=== PATIENT | male | born 1955 | race Caucasian/White ===

== ENCOUNTER → 2018-12-19 | Outpatient (CLI) | payer OTHER ==
[~2018-12-19] MED LIST: GASTROGRAFIN SOLUTION 30ML (Q9963) As Ordered ONE; ISOVUE-370 76% 100ML VIAL (Q9967) As Ordered ONE
--- NOTE | 2018-12-19 09:54 | REP ---
Two-view chest: New 12/19/2018. New indication: Chest pain. Comparison: None. Findings: There are somewhat ill-defined areas of increased opacity within the left upper lobe as well as in the lower lobes. Chronic-appearing left rib deformities are present. There is no pleural effusion or pneumothorax. The cardiomediastinal silhouette is unremarkable save for atherosclerotic disease of the aorta. Minimal dextroscoliosis is present with the convexity centered at T11. Multilevel degenerative sequelae of the lumbar spine are present. Impression: Patchy areas of increased opacity within predominantly the left upper lobe which is nonspecific and may represent pneumonitis, however, neoplastic process is not excluded. Electronically Signed by Jf Dubon DO 12/19/2018 09:46 A
--- NOTE | 2018-12-19 13:37 | REP ---
CT of the abdomen and pelvis with IV and oral contrast for inguinal hernia: There are no comparisons. There is a large right inguinal hernia containing a large loop of colon and a loop of small bowel extending into the scrotum. There is no evidence of bowel strangulation. There is no evidence of bowel obstruction. There is no inguinal hernia on the left. There is a mass in the right renal pelvis extending anterolaterally resulting in attenuation of the right renal arteries. The right renal cortex enhances to a lesser degree than the left renal cortex. I suspect a portion of this mass extends into the adjacent hepatic capsule and parenchyma. There is a 7 cm left suprarenal mass. The right adrenal is not identified with certainty. In the visualized lower lung camacho, there is a left lower lobe pleural-based mass eroding into the adjacent ribs, measuring 7.5 cm along its base. There is a left hilar mass measuring 3.3 cm. There is a 3.6 cm mass, subcapsular, anteriorly in the left lobe of the liver. Just lateral to this there is a mesenteric mass along the serosal surface of the hepatic left lobe measuring 3.0 cm. There is a 2.8 cm mass posteriorly in the left lobe of the liver. The gallbladder is unremarkable. Pancreas and spleen are unremarkable. The abdominal aorta is unremarkable except for calcified atheroma. No definite periaortic adenopathy or mass are identified. There is artifact from the vena cava. There is minimal subcutaneous and intraperitoneal body fat. Pelvis: No ascites. Large right inguinal hernia extending into the scrotum, as described. No adenopathy or mass. There are no lytic, blastic or destructive skeletal changes. There is degenerative disc disease and facet osteoarthritis in the lumbar spine. Impression: Large right inguinal hernia extending into the scrotum containing large and small bowel loops. No evidence of bowel obstruction or strangulation. Multiple masses in the visualized left hemithorax, liver, left adrenal and right kidney. Mesenteric mass adjacent to the hepatic left lobe. Minimal body fat. Electronically Signed by Marino Agustin MD 12/19/2018 01:28 P
== END ==
LOC: M RAD 08:21
PROVIDERS: ATTEND Surgery
DX: K40.90 Unilateral inguinal hernia, without obstruction or gangrene, not specified as recurrent (principal)
CPT/HCPCS: 71046; 74177; Q9963; Q9967

== ENCOUNTER → 2018-12-30 | Outpatient (CLI) | payer OTHER ==
[~2018-12-30] MED LIST changes: +ACET-683 PO; -GASTROGRAFIN SOLUTION 30ML (Q9963) As Ordered ONE; -ISOVUE-370 76% 100ML VIAL (Q9967) As Ordered ONE; +OXYC1TAB23 PO
[2018-12-30 13:51] LABS: INR 1.27; PROTHROMBIN TIME 15.6 SECONDS (11.8-14.0)
[2018-12-30 13:52] LABS: PARTIAL THROMBOPLASTIN TIME 38.3 SECONDS (25.0-38.4)
== END ==
LOC: M LAB 12:49
PROVIDERS: ATTEND Surgery
DX: Z01.818 Encounter for other preprocedural examination (principal)

== ENCOUNTER 2018-12-31 07:05 | Emergency (ER) | payer OTHER ==
[~2018-12-31] VITALS: Ht 167.6 cm; Wt 64.1 kg
[2018-12-31] MEDS: NITROGLYCERIN 0.4 MG SUBL TABLET SL PRN ×3 (07:26→07:36)
[2018-12-31] MEDS ORDERED: cefTRIAXone SOD 2 GM in D5W MINI-BAG PLUS 50 ML IV ONE (07:45)
[2018-12-31] MEDS: IPRATROPIUM 0.5MG/ALBUTEROL 2.5MG INH SOL UD 3ML (DUONEB)(J7620) NEB SCH ×3 (07:45→08:25)
[2018-12-31] MEDS ORDERED: NITROGLYCERIN 2% OINT 1 GM *U/D* PKT TOP ONE (07:45)
[2018-12-31 07:46] LABS: VENOUS BASE EXCESS 1.4 (-2.0-2.0); VENOUS HCO3 26.9 MEQ/L (23.0-27.0); VENOUS O2 SATURATION 77.7 % (60.0-80.0); VENOUS PARTIAL PRESSURE CO2 46.6 mmHg (38.0-50.0); VENOUS PARTIAL PRESSURE O2 46.1 mmHg (30.0-50.0); VENOUS STANDARD HCO3 25.3 MEQ/L; VENOUS TOTAL CO2 28.4 MEQ/L (24.0-28.0)
--- NOTE | 2018-12-31 07:53 | ECGEPIP ---
[facility] - ED Test Date: 2018-12-31 Pat Name: LULA LILLY Department: Room: - Gender: Male [employer]: TC : 1955 Requested By: Lacey Leblanc Order Number: [id number] Reading MD: Ernie Carroll Measurements Intervals [place] Rate: 98 P: 72 IN: 133 QRS: 87 QRSD: 103 T: 85 QT: 359 QTc: 460 Interpretive Statements SINUS RHYTHM POOR R WAVE PROGRESSION BASELINE ARTIFACT AFFECTS INTERPRETATION NO PRIORS FOR COMPARISON Electronically Signed on 12-31-2018 7:53:42 EST by Ernie Carroll
[2018-12-31 07:58] LABS: BASO # 0.1 10^3/uL (0.0-0.2); BASO % 0.5 % (0.0-1.0); EOS # 0.9 10^3/uL (0.0-0.5); EOS % 4.4 % (0.0-3.0); HEMATOCRIT 33.4 % (42.0-52.0); LYMPH # 1.5 10^3/uL (1.5-5.0); LYMPH % 7.1 % (24.0-44.0); MEAN CORPUSCULAR HEMOGLOBIN 31.2 pg (27.0-33.0); MEAN CORPUSCULAR HGB CONC 32.9 g/dl (32.0-36.5); MEAN CORPUSCULAR VOLUME 94.6 fl (80.0-96.0); MONO % 10.3 % (0.0-5.0); NEUTROPHILS # 15.6 10^3/uL (1.5-8.5); NEUTROPHILS % 76.9 % (36.0-66.0); PLATELET COUNT, AUTOMATED 247 10^3/uL (150-450); RED BLOOD COUNT 3.53 10^6/uL (4.30-6.10); WHITE BLOOD COUNT 20.3 10^3/uL (4.0-10.0)
--- NOTE | 2018-12-31 08:05 | REP ---
Portable chest x-ray: Single view. History: Dyspnea and cough. Comparison chest x-ray: December 19, 2018. Findings: Heart is not enlarged. There is a diffuse interstitial pulmonary edema pattern which is a new finding. There is a large opacity in the left perihilar region which may be pleural based mass versus infiltrate. There is a smaller pleural-based mass associated with a rib fracture along the left upper lateral chest wall. A portion of this rib is ill-defined question neoplastic involvement. There is another rib fracture more inferiorly. These ribs are rib numbers five and seven. Pleural angles are sharp. The aorta somewhat tortuous. No pleural effusion. Impression: New diffuse interstitial pulmonary edema pattern. There are two pleural opacities in the left chest, one of which is large. These opacities in the left chest are visualized at the top of the field of view on the CT study of the abdomen taken 08/31/2018 and indeed relate to neoplastic destructive rib lesions with chest wall involvement. Electronically Signed by Rey Alba MD 12/31/2018 08:23 A
[2018-12-31] MEDS ORDERED: OXYC1TAB23 PO (08:07)
[2018-12-31] MEDS ORDERED: ACET-683 PO (08:07)
[2018-12-31 08:11] LABS: INR 1.28; PROTHROMBIN TIME 15.7 SECONDS (11.8-14.0)
[2018-12-31 08:18] VITALS: BP 178/110
[2018-12-31 08:24] LABS: ALBUMIN 2.8 GM/DL (3.2-5.2); ALT/SGPT 15 U/L (12-78); BILIRUBIN,DIRECT 0.3 MG/DL (0.0-0.2); BILIRUBIN,TOTAL 0.7 MG/DL (0.2-1.0); BLOOD UREA NITROGEN 25 MG/DL (7-18); CALCIUM LEVEL 9.7 MG/DL (8.8-10.2); CARBON DIOXIDE LEVEL 27 MEQ/L (21-32); CHLORIDE LEVEL 100 MEQ/L (98-107); CK-MB VALUE MASS 24.7 NG/ML (<3.6); CPK CREATINE PHOSPHOKINASE 214 U/L (39-308); CREATININE FOR GFR 1.18 MG/DL (0.70-1.30); GLOMERULAR FILTRATION RATE > 60.0 (>49); GLUCOSE, FASTING 96 MG/DL (70-100); MB/CK RELATIVE INDEX 11.54 (< OR =4); NT-PRO BNP 18738 PG/ML (<125); POTASSIUM SERUM 3.8 MEQ/L (3.5-5.1); SODIUM LEVEL 137 MEQ/L (136-145); TOTAL PROTEIN 7.5 GM/DL (6.4-8.2); TROPONIN I 7.98 NG/ML (< 0.10)
[2018-12-31 08:29] LABS: MONO # 2.1 10^3/uL (0.0-0.8)
--- NOTE | 2018-12-31 10:07 | REP ---
CT brain: 12/31/2018. Indication: Multiple thoracic and abdominal masses. Metastatic workup. Comparison: None. Technique: Unenhanced axial CT images of the brain were obtained from skull base to vertex. Findings: There are is no lytic lesion of the vertex which is incompletely evaluated. There is no acute intracranial hemorrhage, acute cortical infarction, mass effect or hydrocephalous. Intracranial atherosclerotic disease is present, particularly involving the cavernous ICAs and left V4 segment. Impression: There is no acute intracranial process. Vertex lytic calvarial lesion. Likely metastatic disease considering findings elsewhere of the body. Electronically Signed by Jf Dubon DO 12/31/2018 09:58 A
[2018-12-31] MEDS ORDERED: ASPIRIN 81 MG CHEW TABLET PO ONE (11:30)
--- NOTE | 2018-12-31 12:49 | REP ---
CT CHEST WITHOUT CONTRAST: HISTORY: Dyspnea and cough. Comparison images are from December 19, 2018 study of the abdomen. Comparison is made with today's chest x-ray. CT FINDINGS: There is a paucity of subcutaneous and mediastinal fat consistent with cachexia. There is a skeletal metastatic disease pattern with multiple destructive rib lesions and three areas of associated pleural-based mass effect. The largest of these is in the left posterior rib cage involving rib numbers 8 and 9. There is a fracture of the posterolateral 7th rib on the left. There is a pathologic fracture of the posterolateral right 7th rib. There are radiolucent lesions in the thoracic spine vertebral body at the T5 vertebral body level. This extends into the left pedicle somewhat. There is a smaller lytic lesion in the posterior superior T9 level. There is a metastatic lesion involving the right transverse process at T5 as well. There is a pulmonary parenchymal spiculated nodule in the left upper lobe perihilar region which measures 3.0 cm in greatest diameter. There is some left hilar fullness. No definite mediastinal adenopathy is seen. There is a small amount of pleural fluid on the left. There is some interstitial consolidation in the posterior segment of the left upper lobe which could be a postobstructive or concurrent pneumonia. There are a two or three scattered smaller subcentimeter pulmonary nodules on the right. There is a tod mass in the epicardial fat 3.5 cm in diameter. There are low-density metastatic lesions visible in the liver. IMPRESSION: Metastatic malignancy with multiple bone mets and pleural based masses in the left chest associated with chest wall metastatic disease. Electronically Signed by Rey Alba MD 12/31/2018 03:36 P
[2018-12-31 13:34] VITALS: BP 138/80
== END 2018-12-31 13:37 | disposition short-term general hospital (02) ==
LOC: M ED 07:05
DX: I21.3 ST elevation (STEMI) myocardial infarction of unspecified site (principal); J81.0 Acute pulmonary edema; R53.1 Weakness; C76.1 Malignant neoplasm of thorax; C79.51 Secondary malignant neoplasm of bone; K40.90 Unilateral inguinal hernia, without obstruction or gangrene, not specified as recurrent; F17.200 Nicotine dependence, unspecified, uncomplicated
CPT/HCPCS: 36415; 70450; 71045; 71250; 80048; 80076; 82550; 82553; 82803; 83605; 83880; 84443; 84484; 85025; 85610; 87040; 87486; 87581; 87633; 87798; 93005; 93041; 94640; 96374; 99285; J0696